=== PATIENT | female | born 1950 | race Caucasian/White ===

== ENCOUNTER → 2016-05-11 | Outpatient (CLI) | payer MEDICARE, BC ==
[~2016-05-11] MED LIST: ASPI-650 PO; ATOR20TA9 PO; AZEL137S4 NAS; CALC-173 PO; CHOL5000 PO; DIPH50CA26 PO; KRIL1CAP6 PO; LINA290C PO; MULT-230 PO; RED600CA2 PO; UBID100C24 PO
== END | disposition home or self-care (01) ==
LOC: ROC 12:54
PROVIDERS: ATTEND Radiology Radiation Oncology
DX: C50.412 Malignant neoplasm of upper-outer quadrant of left female breast (principal)
CPT/HCPCS: G0463

== ENCOUNTER → 2016-08-24 | Outpatient (CLI) | payer MEDICARE, BC | END | disposition home or self-care (01) | LOC: ROC 10:36 | PROVIDERS: ATTEND Radiology Radiation Oncology | DX: C50.912 Malignant neoplasm of unspecified site of left female breast (principal); Z79.811 Long term (current) use of aromatase inhibitors; Z79.82 Long term (current) use of aspirin | CPT/HCPCS: G0463 ==

== ENCOUNTER → 2017-11-23 | Outpatient (CLI) | payer MEDICARE, BC | END | disposition home or self-care (01) | LOC: CFH 12:58 | PROVIDERS: ATTEND Nurse Practitioner Family | DX: R06.02 Shortness of breath (principal); Z85.3 Personal history of malignant neoplasm of breast | CPT/HCPCS: 93306 ==